=== PATIENT | male | born 1965 | race Caucasian/White ===

== ENCOUNTER 2017-03-04 06:30 | Emergency (ER) | payer OTHER ==
[~2017-03-04] VITALS: Ht 175.3 cm; Wt 83.0 kg
[2017-03-04 06:35] VITALS: Ht 175.3 cm; Wt 83.0 kg
[2017-03-04] MEDS ORDERED: KETOROLAC 60 MG INJ IM STA (07:37)
[2017-03-04] MEDS ORDERED: CEPH-443 PO (07:42)
[2017-03-04] MEDS ORDERED: HYDR-906 PO (07:42)
[2017-03-04] MEDS ORDERED: SULF1TAB31 PO (07:42)
[2017-03-04] MEDS ORDERED: LIDOCAINE 1% (MDV) 20 ML INJ IM ONE (08:00)
[2017-03-04] MEDS ORDERED: DIPHTH/TET/ACEL PERTUSS (ADULT) 0.5 ML VIAL IM* ONE (08:00)
[2017-03-04] MEDS ORDERED: CEFTRIAXONE 1 GM INJ IM ONE (08:00)
[2017-03-04] MEDS ORDERED: IBUPROFEN 800 MG TAB PO ONE (08:00)
--- NOTE | 2017-03-04 08:53 | ERD ---
ER Documentation Chief Complaint Date/Time DATE: 03/04/17 TIME: 08:31 Chief Complaint b/l foot pain x 1 week HPI 51-year-old male with no chronic medical problems presenting with bilateral foot pain. He states that the pain has been going on for about a week and getting worse. He is able to walk but with difficulty secondary to pain. He has noticed some lesions on his feet bilaterally that he describes as pimples. He also thinks he stepped on something in the kitchen but he is not sure what. He never checked his foot. The pain started 2 days after that. Pain is throbbing, 8 out of 10, nonradiating, worse with walking, better with rest. He denies any associated fevers or chills. He has noted some drainage from the lesions on his right foot. Left foot is not as bad. Last tetanus vaccine was about 10-11 years ago ROS All systems reviewed and are negative except as per history of present illness. Medications Home Meds Active Scripts Hydrocodone/Acetaminophen ([place] 5-325 Tablet) 1 Each Tablet, 1-2 TAB PO Q6H Y for PAIN, #12 TAB Prov:EDIL RICHARDSON MD 03/04/17 Sulfamethoxazole/Trimethoprim* (Bactrim Ds* Tablet) 1 Each Tablet, 1 TAB PO BID , #14 TAB Prov:EDIL RICHARDSON MD 03/04/17 Cephalexin* (Keflex*) 500 Mg Capsule, 500 MG PO QID for 7 Days, CAP Prov:EDIL RICHARDSON MD 03/04/17 Allergies Allergies: Coded Allergies: No Known Allergy (Unverified , 03/04/17) PMhx/Soc Medical and Surgical Hx: pt denies Medical Hx History of Surgery: Yes (Neck) Anesthesia Reaction: No Hx Neurological Disorder: No Hx Respiratory Disorders: No Hx Cardiac Disorders: No Hx Psychiatric Problems: No Hx Miscellaneous Medical Probl: No Hx Alcohol Use: Yes Hx Substance Use: No Hx Tobacco Use: No Smoking Status: Never smoker FmHx Family History: No coronary disease, No diabetes Physical Exam Vitals Vital Signs Date Time Temp Pulse Resp B/P Pulse Ox O2 Delivery O2 Flow Rate FiO2 03/04/17 06:35 98.2 90 18 157/82 98 Physical Exam Const: Well-appearing, pleasant, no distress, nontoxic Head: Atraumatic Eyes: Normal Conjunctiva ENT: Normal External Ears, Nose and Mouth. Neck: Full range of motion. No meningismus. Resp: Clear to auscultation bilaterally Cardio: Regular rate and rhythm, no murmurs Abd: Soft, non tender, non distended. Normal bowel sounds Skin: Warm, dry. See extremity exam Back: No midline or flank tenderness Ext: No cyanosis. Right lower extremity: Right lateral foot with erythema and swelling, warmth to touch. There are a few ulcerations on the right lateral aspect of his foot and purulent drainage from the bottom of the foot. There is no obvious foreign body. No crepitus. Tender to palpation diffusely. Third and fourth toes erythematous and swollen with mild drainage at the tips , violaceous color. Good cap refill. Left lower extremity: Scaling skin on the bottom of the foot with very superficial ulcerated lesions, no significant erythema or warmth. No swelling. Bilateral legs above the foot appear normal without swelling or erythema. No calf tenderness. Neur: Awake and alert Psych: Normal Mood and Affect Results 24 hrs Current Medications Medications (Trade) Dose Ordered Sig/Christi Route PRN Reason Start Time Stop Time Status Last Admin Dose Admin Ketorolac Tromethamine (Toradol) 60 mg ONCE STAT IM 03/04/17 07:37 03/04/17 07:45 DC Ceftriaxone Sodium (Rocephin) 1 gm ONCE ONCE IM 03/04/17 08:00 03/04/17 08:01 DC 03/04/17 07:47 Diphtheria/ Tetanus/Acell Pertussis (Adacel) 0.5 ml ONCE ONCE IM* 03/04/17 08:00 03/04/17 08:01 DC 03/04/17 07:52 Ibuprofen (Motrin) 800 mg ONCE ONCE PO 03/04/17 08:00 03/04/17 08:01 DC 03/04/17 07:51 Lidocaine (Xylocaine 1% (Mdv) 20 ml) 1 ml ONCE ONCE IM 03/04/17 08:00 03/04/17 08:01 DC 03/04/17 07:51 Procedures/MDM Right foot x-ray: Chronic bony changes seen, no acute abnormalities, no foreign body MDM: Patient is presenting with right foot cellulitis. Vitals are normal and he is afebrile and well-appearing on exam. I doubt necrotizing soft tissue infection or osteomyelitis. I do not suspect sepsis. Given the possibility of foreign body right foot x-ray was done and did not show any specific foreign body. I discussed with the patient admission versus going home with a trial of antibiotics. He states that he would prefer to go home and try outpatient antibiotics prior to admission. I think this is fair and he is stable for outpatient treatment. I gave him a tetanus shot, Rocephin IM, and ibuprofen orally here. I discussed with him that he probably has tinea of his feet which predisposed him to infection. He will need this treated after the infection is treated. I provided him the number of multiple community clinics. Patient understands and will make a follow-up appointment with 1 of the clinics in the next few days. I advised him to return within 24-48 hours if he notices that the infection is getting worse instead of better. A prescription for Keflex and Bactrim were given. He was also given a small prescription for [place] for the pain. He was warned about the side effects of this medication. Patient was discharged in stable condition. Departure Diagnosis: Primary Impression: Cellulitis of right foot Additional Impression: Athlete's foot Laterality: bilateral Qualified Code: B35.3 - Tinea pedis of both feet Condition: Stable Patient Instructions: Cellulitis Referrals: [facility] YOU HAVE RECEIVED A MEDICAL SCREENING EXAM AND THE RESULTS INDICATE THAT YOU DO NOT HAVE A CONDITION THAT REQUIRES URGENT TREATMENT IN THE EMERGENCY DEPARTMENT. FURTHER EVALUATION AND TREATMENT OF YOUR CONDITION CAN WAIT UNTIL YOU ARE SEEN IN YOUR DOCTORS OFFICE WITHIN THE NEXT 1-2 DAYS. IT IS YOUR RESPONSIBILITY TO MAKE AN APPOINTMENT FOR FOLOW-UP CARE. IF YOU HAVE A PRIMARY DOCTOR --you should call your primary doctor and schedule an appointment IF YOU DO NOT HAVE A PRIMARY DOCTOR YOU CAN CALL OUR PHYSICIAN REFERRAL HOTLINE AT IF YOU CAN NOT AFFORD TO SEE A PHYSICIAN YOU CAN CHOSE FROM THE FOLLOWING [facility] [address] [facility] [address] [facility] [address] [facility] [address] [facility] [address] [facility]. [facility] [address] Additional Instructions: Return to the ER in 24-48 hours if the redness is spreading or if your symptoms are worsening. Follow-up with your primary physician in the next 2-3 days for a recheck of your wounds. Take all medications as prescribed until they are done. EDIL RICHARDSON MD Mar 04, 2017 08:53
--- NOTE | 2017-03-04 09:34 | RADRPT ---
PROCEDURE: XR Foot. CLINICAL INDICATION: Right foot pain. Question of radiopaque foreign body. TECHNIQUE: Three views of the right foot are available for review. COMPARISON: None available. FINDINGS: There is a large, corticated osseous fragment with an additional smaller osseous fragment posterior lateral to the fifth metatarsal base, suggestive of the sequela of prior trauma. There is no edema within the surrounding soft tissues to suggest acute fracture or dislocation. No radiopaque foreign body is identified. The alignment is otherwise normal. There is dorsal calcaneal enthesophyte for mation. There are hammertoe deformities throughout the foot. IMPRESSION: 1. Negative for acute fracture or dislocation. 2. Multiple corticated osseous densities adjacent to the lateral base of the fifth metatarsal, like ly the sequela of prior trauma. 3. No radiopaque foreign bodies identified, as questioned. 4. Dorsal calcaneal enthesophyte formation. Hammertoe deformities. RPTAT: AA .Gamal Rodas MD, Date Time Electronically viewed and signed by .Gamal Rodas MD, on 03/04/2017 09:34 .P/
[2017-03-04 09:42] VITALS: BP 113/85; PULSE 78; RESP 18
== END 2017-03-04 09:54 | disposition home or self-care (01) ==
LOC: E/R 06:30
DX: L03.115 Cellulitis of right lower limb (principal); B35.3 Tinea pedis; Z23 Encounter for immunization
CPT/HCPCS: 73630; 90471; 90715; 96372; J0696; Z7502; Z7610; J1885

== ENCOUNTER 2017-08-11 20:58 | Emergency (ER) | payer OTHER ==
[~2017-08-11] VITALS: Ht 172.7 cm; Wt 87.1 kg
[~2017-08-11 20:58] MED LIST: CEPH-443 PO; HYDR-906 PO; SULF1TAB31 PO
[2017-08-11 21:00] VITALS: Ht 172.7 cm; Wt 87.1 kg
[2017-08-12] MEDS ORDERED: morphine 4 MG/ML VIAL IV STA (00:13)
[2017-08-12] MEDS ORDERED: ONDANSETRON 4 MG INJ IV STA (00:13)
[2017-08-12] MEDS ORDERED: SOD CHLORIDE 0.9% 1,000 ML IV STA (00:13)
[2017-08-12] MEDS ORDERED: LIDOCAINE/MYLANTA 40 ML BTL PO ONE (00:30)
[2017-08-12 00:37] LABS: BASOPHIL # 0.1 10^3/ul (0.0-0.1); BASOPHILS % 0.4 % (0.0-2.0); EOSINOPHILS # 0.1 10^3/ul (0.0-0.5); EOSINOPHILS % 0.4 % (0.0-7.0); HEMATOCRIT 42.7 % (42.0-52.0); HEMOGLOBIN 14.5 g/dl (14.0-18.0); LYMPHOCYTES # 2.2 10^3/ul (0.8-2.9); LYMPHOCYTES % 13.8 % (15.0-51.0); MEAN CORPUSCULAR HEMOGLOBIN 31.8 pg (29.0-33.0); MEAN CORPUSCULAR VOLUME 93.6 fl (82.0-101.0); MEAN PLATELET VOLUME 9.1 fl (7.4-10.4); MONOCYTE # 1.3 10^3/ul (0.3-0.9); MONOCYTES % 8.3 % (0.0-11.0); NEUTROPHILS % 76.2 % (39.0-77.0); PLATELET COUNT 221 10^3/UL (140-415); RED BLOOD COUNT 4.56 10^6/ul (4.70-6.10); RED CELL DISTRIBUTION WIDTH 11.9 % (11.5-14.5); WHITE BLOOD COUNT 15.7 10^3/ul (4.8-10.8)
[2017-08-12 00:53] LABS: ALBUMIN 3.9 g/dl (3.3-4.9); ALBUMIN/GLOBULIN RATIO 1.21; BILIRUBIN,INDIRECT 1.3 mg/dl (0-1.1); BILIRUBIN,TOTAL 1.3 mg/dl (0.2-1.3); CALCIUM 9.9 mg/dl (8.4-10.2); CREATININE 1.24 mg/dl (0.61-1.24); POTASSIUM 4.2 mmol/L (3.5-5.1); TOTAL PROTEIN 7.1 g/dl (6.1-8.1)
[2017-08-12 01:16] VITALS: TEMP 96
--- NOTE | 2017-08-12 03:04 | RADRPT ---
PROCEDURE: CT of the abdomen and pelvis without contrast CLINICAL INDICATION: Abdominal pain TECHNIQUE: Spiral CT images through the abdomen and pelvis without the use of contrast. The admin istered radiation dose is CTDI 17.18 mGy and DLP 1060.85 mGy*cm. Coronal and sagittal reformatted i mages were submitted. One or more of the following dose reduction techniques were used: automated e xposure control, adjustment of the mA and/or kV according to patient size, or use of iterative recon struction technique. DICOM images are available. COMPARISON: None FINDINGS: Lack of oral and intravenous contrast somewhat limits evaluation. There is a left lower lobe calc ified granuloma, trace bilateral pleural effusions and mild basilar atelectasis. The liver, spleen, and pancreas are unremarkable. There is a 1 cm hypodense nodule in the right adr enal gland.. 2.5 cm gallstone is identified. No biliary ductal dilatation is seen.. The kidneys are normal in size and contour. There is no evidence of hydronephrosis or nephrolithiasis. The aorta is normal in caliber . Minimal aortic calcifications are seen. There is no evidence for bowel obstruct ion, free air, or abscess. The appendix is not visualized.. No adenopathy or ascites is seen. The bladder is distended with 2-3calculi, the larger measuring 9 mm. The prostate gland is enlarged with a mass seen in the bladder base, measuring proximally 2.5 cm. There is a small fat containing left inguinal hernia.. There are degenerative changes in the spine, severe at L5-S1. No lytic or blastic lesion is identified. IMPRESSION: Cholelithiasis. Bladder calculi. Enlarged prostate gland with a mass with the mass at the bladder base. Malignancy is not excluded. Small bilateral pleural effusions and basilar atelectasis. RPTAT: HCNS Physician Leia Date Time Electronically viewed and signed by Physician Leia on 08/12/2017 03:04 /
[2017-08-12] MEDS ORDERED: METH16TA PO (03:17)
[2017-08-12 03:44] LABS: URINE BLOOD (Dip) POC 1+ (NEGATIVE)
[2017-08-12] MEDS ORDERED: HYDR-906 PO (03:51)
[2017-08-12] MEDS ORDERED: NAPR-688 PO (03:51)
[2017-08-12 04:18] VITALS: BP 143/93; PULSE 66; RESP 18
--- NOTE | 2017-08-12 04:48 | ERD ---
ER Documentation Chief Complaint Chief Complaint bib ra [id number] c/o mid abdominal pain x 2 hours. c/o nausea. no vomiting HPI This 52-year-old male presents with mid abdominal pain that began 2 hours ago. He has some nausea with no vomiting. Pain is described as a dull pressure sensation. Sometimes it is sharp. ROS All systems reviewed and are negative except as per history of present illness. Medications Home Meds Active Scripts Naproxen* (Naproxen*) 500 Mg Tablet, 500 MG PO BID Y for PAIN, #20 TAB Prov:CHELSEAJAMIL DO 08/12/17 Hydrocodone/Acetaminophen ([place] 5-325 Tablet) 1 Each Tablet, 1 EACH PO Q6, #14 TAB Prov:JAMIL TRAN DO 08/12/17 Reported Medications Methylprednisolone* (Methylprednisolone*) Unknown Strength Tablet, 0 PO, TAB 08/12/17 Discontinued Scripts Hydrocodone/Acetaminophen ([place] 5-325 Tablet) 1 Each Tablet, 1-2 TAB PO Q6H Y for PAIN, #12 TAB Prov:EDIL RICHARDSON MD 03/04/17 Sulfamethoxazole/Trimethoprim* (Bactrim Ds* Tablet) 1 Each Tablet, 1 TAB PO BID , #14 TAB Prov:EDIL RICHARDSON MD 03/04/17 Cephalexin* (Keflex*) 500 Mg Capsule, 500 MG PO QID for 7 Days, CAP Prov:EDIL RICHARDSON MD 03/04/17 Allergies Allergies: Coded Allergies: No Known Allergy (Unverified , 08/11/17) PMhx/Soc History of Surgery: Yes (Neck) Anesthesia Reaction: No Hx Neurological Disorder: No Hx Respiratory Disorders: No Hx Cardiac Disorders: No Hx Psychiatric Problems: No Hx Miscellaneous Medical Probl: No Hx Alcohol Use: Yes Hx Substance Use: No Hx Tobacco Use: No Smoking Status: Never smoker Physical Exam Vitals Vital Signs Date Time Temp Pulse Resp B/P Pulse Ox O2 Delivery O2 Flow Rate FiO2 08/12/17 04:18 66 18 143/93 97 Room Air 08/12/17 01:16 96.0 76 19 120/81 99 Room Air 08/11/17 23:53 96.0 72 20 114/74 100 Room Air 08/11/17 21:00 96.0 72 20 161/96 98 Physical Exam Const: [] No obvious distress Head: Atraumatic Eyes: Normal Conjunctiva ENT: Normal External Ears, Nose and Mouth. Neck: Full range of motion..~ No meningismus. Resp: Clear to auscultation bilaterally Cardio: Regular rate and rhythm, no murmurs Abd: Soft, old abdominal tenderness just below the umbilicus, no right lower quadrant tenderness, no guarding or rebound r, non distended. Normal bowel sounds Skin: No petechiae or rashes Back: No midline or flank tenderness Ext: No cyanosis, or edema Neur: Awake and alert oriented 3, no focal deficit Psych: Normal Mood and Affect Result Diagram: 08/12/170 08/12/17 0020 Results 24 hrs Laboratory Tests Test 08/12/17 00:20 08/12/17 03:42 White Blood Count 15.710^3/ul Red Blood Count 4.5610^6/ul Hemoglobin 14.5g/dl Hematocrit 42.7% Mean Corpuscular Volume 93.6fl Mean Corpuscular Hemoglobin 31.8pg Mean Corpuscular Hemoglobin Concent 34.0g/dl Red Cell Distribution Width 11.9% Platelet Count 14291^3/UL Mean Platelet Volume 9.1fl Neutrophils % 76.2% Lymphocytes % 13.8% Monocytes % 8.3% Eosinophils % 0.4% Basophils % 0.4% Nucleated Red Blood Cells % 0.0/100WBC Neutrophils # 12.010^3/ul Lymphocytes # 2.210^3/ul Monocytes # 1.310^3/ul Eosinophils # 0.110^3/ul Basophils # 0.110^3/ul Nucleated Red Blood Cells # 0.010^3/ul Sodium Level 144mmol/L Potassium Level 4.2mmol/L Chloride Level 105mmol/L Carbon Dioxide Level 31mmol/L Anion Gap 12 Blood Urea Nitrogen 26mg/dl Creatinine 1.24mg/dl Glucose Level 104mg/dl Calcium Level 9.9mg/dl Total Bilirubin 1.3mg/dl Direct Bilirubin 0.00mg/dl Indirect Bilirubin 1.3mg/dl Aspartate Amino Transf (AST/SGOT) 21IU/L Alanine Aminotransferase (ALT/SGPT) 47IU/L Alkaline Phosphatase 62IU/L Total Protein 7.1g/dl Albumin 3.9g/dl Globulin 3.20g/dl Albumin/Globulin Ratio 1.21 Lipase 43U/L Bedside Urine pH (LAB) 5.5 Bedside Urine Protein (LAB) 2+ Bedside Urine Glucose (UA) Negative Bedside Urine Ketones (LAB) Negative Bedside Urine Blood 1+ Bedside Urine Nitrite (LAB) Negative Bedside Urine Leukocyte Esterase (L Negative Current Medications Medications (Trade) Dose Ordered Sig/Christi Route PRN Reason Start Time Stop Time Status Last Admin Dose Admin Sodium Chloride (NS) 1,000 ml @ 1,000 mls/hr Q1H STAT IV 08/12/17 00:13 08/12/17 01:12 DC 08/12/17 00:13 Morphine Sulfate (morphine) 4 mg ONCE STAT IV 08/12/17 00:13 08/12/17 00:15 DC Ondansetron HCl (Zofran Inj) 4 mg ONCE STAT IV 08/12/17 00:13 08/12/17 00:15 DC Miscellaneous Medication (Gi Cocktail (2)) 40 ml ONCE ONCE PO 08/12/17 00:30 08/12/17 00:31 DC 08/12/17 01:18 Procedures/MDM Abdominal pain more likely secondary to bladder mass to enlarged prostate than 2 biliary colic. Abdominal exam is fairly benign. He was given normal saline, morphine, GI cocktail, Zofran which almost completely alleviated his symptoms. Does have nonspecific leukocytosis without signs of urinary tract infection. Maybe having a more chronic prostatitis. The patient needs his urological evaluation for cystoscopy to evaluate the mass and his prostate. Patient states that he does have insurance and health plan from his new job. I have instructed him to find out who his primary care doctor is on Monday and call for urology referral as soon as possible. Return precautions to the ER for any fevers or pain that cannot be controlled. I am discharging with naproxen and a few [place]. Abdomen pelvis interpretation: Gallstones, bladder mass, enlarged prostate, no signs of acute cholecystitis, no obstruction, no free air, no fractures Departure Diagnosis: Primary Impression: Gallstones Additional Impressions: Acute abdominal pain Bladder mass Condition: Stable Patient Instructions: Abdominal Pain, Gallstones Additional Instructions: Call your primary care doctor TOMORROW for an appointment for an appointment with a urologist for a cystoscopy. See the doctor sooner or return here if your condition worsens before your appointment time. JAMIL TRAN DO Aug 12, 2017 04:48
== END 2017-08-12 04:18 | disposition home or self-care (01) ==
LOC: E/R 20:58
DX: K80.20 Calculus of gallbladder without cholecystitis without obstruction (principal); N32.89 Other specified disorders of bladder; R10.13 Epigastric pain
CPT/HCPCS: 36415; 74176; 80053; 81003; 83690; 85025; J7030; Z7502; Z7610; 93005